=== PATIENT | female | born 1950 | race Native Hawaiian/Other Pacific Islander ===

== ENCOUNTER → 2017-01-08 | Outpatient (CLI) | payer MEDICARE, OTHER ==
--- NOTE | 2017-01-09 13:53 | MM ---
Reason for exam: screening (asymptomatic). Last mammogram was performed 1 year ago. History: Patient is postmenopausal. Family history of breast cancer in paternal aunt. Physical Findings: A clinical breast exam by your physician is recommended on an annual basis and results should be correlated with mammographic findings. MG Screening Mammo w CAD Bilateral CC and MLO view(s) were taken. Prior study comparison: January 05, 2016, bilateral MG screening mammo w CAD. January 02, 2015, bilateral MG screening mammo w CAD. The breast tissue is heterogeneously dense. This may lower the sensitivity of mammography. There is an increasing group of calcifications upper outer left breast at posterior depth. This finding is changed when compared with previous exams. ASSESSMENT: Incomplete: need additional imaging evaluation, BI-RAD 0 RECOMMENDATION: Special view mammogram of the left breast. [facility] will attempt to contact patient to return for supplemental views.
== END | disposition home or self-care (01) ==
LOC: RADMAMWWP 11:33
PROVIDERS: ATTEND Family Medicine
DX: Z12.31 Encounter for screening mammogram for malignant neoplasm of breast (principal); R92.2 Inconclusive mammogram

== ENCOUNTER → 2017-01-16 | Outpatient (CLI) | payer MEDICARE ==
--- NOTE | 2017-01-16 11:33 | MM ---
Reason for exam: additional evaluation requested from abnormal screening. Last mammogram was performed less than 1 month ago. History: Patient is postmenopausal. Family history of breast cancer in paternal aunt. Physical Findings: Nurse did not find any significant physical abnormalities on exam. MG 3D Work Up W/Cad LT CC, MLO, ML, XCCL, CC with magnification, and ML with magnification view(s) were taken of the left breast. Prior study comparison: January 08, 2017, bilateral MG screening mammo w CAD. January 05, 2016, bilateral MG screening mammo w CAD. There are scattered fibroglandular densities. Punctate calcifications in circular configuration with underlying lucency may reflect calcifications in the all of a small cyst. A 6 month follow up is recommended. These results were verbally communicated with the patient and result sheet given to the patient on 01/16/17. ASSESSMENT: Probably benign, BI-RAD 3 RECOMMENDATION: Follow-up diagnostic mammogram of the left breast in 6 months.
== END | disposition home or self-care (01) ==
LOC: RADMAMWWP 10:25
PROVIDERS: ATTEND Family Medicine
DX: R92.8 Other abnormal and inconclusive findings on diagnostic imaging of breast (principal)
CPT/HCPCS: G0206; G0279

== ENCOUNTER → 2017-07-21 | Outpatient (CLI) | payer MEDICARE ==
--- NOTE | 2017-07-21 14:01 | MM ---
Reason for exam: follow-up at short interval from prior study. Last mammogram was performed 6 months ago. History: Patient is postmenopausal. Family history of breast cancer in paternal aunt. Physical Findings: Nurse did not find any significant physical abnormalities on exam. MG 3D Diag Mammo W/Cad LT CC and MLO view(s) were taken of the left breast. Prior study comparison: January 16, 2017, left breast MG 3d work up w/cad LT. January 08, 2017, bilateral MG screening mammo w CAD. There are scattered fibroglandular densities. There are two groups of calcifications in the upper outer quadrant 1.0cm and 0.5mm at posterior and middle depth respectively. No suspicious abnormality. These results were verbally communicated with the patient and result sheet given to the patient on 07/21/17. ASSESSMENT: Probably benign, BI-RAD 3 RECOMMENDATION: Follow-up diagnostic mammogram of both breasts in 6 months. Back on schedule for December 2017.
== END | disposition home or self-care (01) ==
LOC: RADMAMWWP 13:08
PROVIDERS: ATTEND Family Medicine
DX: R92.8 Other abnormal and inconclusive findings on diagnostic imaging of breast (principal)
CPT/HCPCS: 77065; G0279

== ENCOUNTER → 2018-02-26 | Outpatient (CLI) | payer MEDICARE, OTHER ==
--- NOTE | 2018-02-26 14:41 | MM ---
Reason for exam: additional evaluation requested from prior study. Last mammogram was performed 7 months ago. History: Patient is postmenopausal. Family history of breast cancer in paternal aunt. Physical Findings: Nurse did not find any significant physical abnormalities on exam. MG 3D Diag Mammo W/Cad [facility] Bilateral CC and MLO view(s) were taken. Prior study comparison: July 21, 2017, left breast MG 3d diag mammo w/cad LT. January 16, 2017, left breast MG 3d work up w/cad LT. There are scattered fibroglandular densities. Finding: There are several stable, fine, coarse, grouped/clustered calcifications in both breasts. Left upper outer quadrant calcifications are stable. No significant changes in finding since July 21, 2017 and January 16, 2017. These results were verbally communicated with the patient and result sheet given to the patient on 02/26/18. ASSESSMENT: Benign, BI-RAD 2 RECOMMENDATION: Routine screening mammogram of both breasts in 1 year.
== END | disposition home or self-care (01) ==
LOC: RADMAMWWP 13:34
PROVIDERS: ATTEND Family Medicine
DX: R92.8 Other abnormal and inconclusive findings on diagnostic imaging of breast (principal)
CPT/HCPCS: 77066; G0279; 77062

== ENCOUNTER → 2019-05-11 | Outpatient (CLI) | payer MEDICARE, OTHER ==
--- NOTE | 2019-05-12 14:44 | MM ---
Reason for exam: screening (asymptomatic). Last mammogram was performed 1 year and 2 months ago. History: Patient is postmenopausal. Family history of breast cancer in paternal aunt. Took hormonal contraceptives for 2 months. Physical Findings: A clinical breast exam by your physician is recommended on an annual basis and results should be correlated with mammographic findings. MG 3D Screening Mammo W/Cad Bilateral CC and MLO view(s) were taken. Prior study comparison: February 26, 2018, bilateral MG 3d diag mammo w/cad [facility]. July 21, 2017, left breast MG 3d diag mammo w/cad LT. The breast tissue is heterogeneously dense. This may lower the sensitivity of mammography. There are benign appearing round vascular dystrophic calcifications bilaterally. There is chronic nodularity in the left upper outer quadrant. There is no discrete abnormality. ASSESSMENT: Benign, BI-RAD 2 RECOMMENDATION: Routine screening mammogram of both breasts in 1 year.
== END | disposition home or self-care (01) ==
LOC: RADMAMWWP 09:53
PROVIDERS: ATTEND Family Medicine
DX: Z12.31 Encounter for screening mammogram for malignant neoplasm of breast (principal)
CPT/HCPCS: 77063; 77067

== ENCOUNTER → 2019-11-24 | Outpatient (CLI) | payer MEDICARE, OTHER ==
--- NOTE | 2019-11-25 12:52 | ECHOF ---
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 MEASUREMENTS -------- HEIGHT: 152.4 cm WEIGHT: 82.6 kg BP: RVIDd: 3.6 cm (< 3.3) IVSd: 0.9 cm (0.6 - 1.1) LVIDd: 4.3 cm (3.9 - 5.3) LVPWd: 1.2 cm (0.6 - 1.1) IVSs: 1.5 cm LVIDs: 2.9 cm LVPWs: 1.7 cm LA Diam: 3.6 cm (2.7 - 3.8) LAESV Index (A-L): 24.37 ml/m Ao Diam: 3.0 cm (2.0 - 3.7) AV Cusp: 1.7 cm (1.5 - 2.6) LA Diam: 3.4 cm (2.7 - 3.8) MV EXCURSION: 13.883 mm (> 18.000) MV EF SLOPE: 58 mm/s (70 - 150) EPSS: 0.4 cm MV E Layo: 0.42 m/s MV DecT: 257 ms MV A Layo: 0.90 m/s MV E/A Ratio: 0.46 AV maxP.22 mmHg AV meanP.27 mmHg AR PHT: 294 ms RAP: 5.00 mmHg RVSP: 21.43 mmHg FINDINGS -------- Sinus rhythm. This was a technically adequate study. The left ventricular size is normal. There is mild concentric left ventricular hypertrophy. Overa ll left ventricular systolic function is normal with, an EF between 55 - 60 %. The right ventricle is normal in size. The left atrial size is normal. Normal LA size by volume 22+/-6 ml/m2. The right atrial size is normal. There is mild aortic regurgitation. There is mild aortic stenosis present. Peak/mean gradient acr oss the Aortic Valve is 18.22mmHg / 9.27mmHg. Mild mitral annular calcification present. Mild mitral regurgitation is present. Mild tricuspid regurgitation present. Right ventricular systolic pressure is normal at < 35 mmHg. Trace/mild (physiologic) pulmonic regurgitation. The aortic root size is normal. There is no pericardial effusion. CONCLUSIONS -------- 1. Sinus rhythm. 2. This was a technically adequate study. 3. The left ventricular size is normal. 4. There is mild concentric left ventricular hypertrophy. 5. Overall left ventricular systolic function is normal with, an EF between 55 - 60 %. 6. The right ventricle is normal in size. 7. The left atrial size is normal. 8. Normal LA size by volume 22+/-6 ml/m2. 9. The right atrial size is normal. 10. There is mild aortic regurgitation. 11. There is mild aortic stenosis present. 12. Peak/mean gradient across the Aortic Valve is 18.22mmHg / 9.27mmHg. 13. Mild mitral annular calcification present. 14. Mild mitral regurgitation is present. 15. Mild tricuspid regurgitation present. 16. Right ventricular systolic pressure is normal at < 35 mmHg. 17. Trace/mild (physiologic) pulmonic regurgitation. 18. The aortic root size is normal. 19. There is no pericardial effusion. PAROLE AGENT: Angela Chong RDCS
== END | disposition home or self-care (01) ==
LOC: RADECHMAIN 13:26
PROVIDERS: ATTEND Internal Medicine Gastroenterology
DX: I08.3 Combined rheumatic disorders of mitral, aortic and tricuspid valves (principal)
CPT/HCPCS: 93306

== ENCOUNTER 2019-12-22 07:10 | Day surgery (SDC) | payer MEDICARE, OTHER ==
[2019-12-20 11:42] VITALS: BMI 35.2
[~2019-12-22 07:10] MED LIST: LACTATED RINGERS 1,000 ML IV SCH
[2019-12-22 07:47] LABS: Glucose,Whole Blood 114 mg/dL (75-99)
[2019-12-22 07:52] VITALS: TEMP 98.2
[2019-12-22] MEDS ORDERED: PROPOFOL 10 MG/ML 20 ML VIAL IV ONE (07:55)
[2019-12-22] MEDS ORDERED: LIDOCAINE 1% INJ 10MG/ML (20 ML MDV) ONE (07:55)
--- NOTE | 2019-12-22 08:33 | P.PCN ---
Date of Procedure: 12/22/19 Procedure(s) Performed: Brief history: Patient is a pleasant 69-year-old white scheduled for an elective upper endoscopy as well as colonoscopy as a part of evaluation of GERD intermittent dysphagia to solids and anemia with black tarry stools. She was noted to have Hemoccult-positive stool. Procedure performed: Esophagogastroduodenoscopy with biopsy Colonoscopy with argon plasma coagulation, snare polypectomy Preoperative diagnosis: GERD/intermittent dysphagia to solids Hemoccult-positive stools/anemia Anesthesia: MAC Procedure: After informed consent was obtained from the patient was brought into the endoscopy unit and IV sedation was administered by anesthesia under continuous monitoring. Initially upper endoscopy was done. The Olympus GF 160 video endoscope was inserted inserted into the mouth and esophagus intubated without any difficulty and was gradually advanced into the stomach and duodenum and carefully examined. The bulb and second part of the duodenum appeared normal. Biopsies were done from the The scope was then withdrawn into the stomach adequately insufflated with air and upon careful examination the antrum had mild gastritis and biopsies were done from this area. The body, cardia and fundus appeared normal. The scope was then withdrawn into the esophagus. The GE junction was located at 37 cm to the incisors. It appeared regular with no erosions or ulcerations. There was mild circumferential erythema consistent with LA grade a reflux esophagitis There was evidence of scarring noted at the GE junction from previous esophagitis. No obvious esophagueal stricture are identified. Rest of the esophagus appeared normal. Patient tolerated the procedure well. At this time the patient continued to remain sedation. Initial digital rectal examination was normal. Olympus CF 160 video colonoscope was then inserted into the rectum and gradually advanced to the sigmoid:.colon: Further advancement was not possible. Scope removed and a pediatric colonoscope was then inserted into the rectum and gradually advanced into the cecum with mild to moderate difficulty. Careful examination was performed as the scope was gradually being withdrawn. The prep was excellent. On the ileocecal valve there was a 1 cm nonbleeding arterial venous malformation that was cauterized using argon plasma coagulation. The cecum, ascending colon, transverse colon appeared normal. In the descending colon at 50 cm from the anal was there was a 1 cm sessile polyp removed by snare polypectomy. Scattered left sided diverticulosis seen. Rest of the, descending colon, sigmoid colon and rectum appeared normal. Retroflexion was performed in the rectum and no lesions were noted. Patient tolerated the procedure well. Impression: 1. Upper endoscopy revealed mild antral gastritis and LA grade a reflux esophagitis 2. 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 She was advised to follow with the biopsy results. If the biopsy shows an adenoma she can have a repeat colonoscopy in 3-5 years.
[2019-12-22 08:39] VITALS: BP 126/55; PULSE 76; RESP 18
== END 2019-12-22 09:29 | disposition home or self-care (01) ==
LOC: ORWHC2ENDO 07:10
PROVIDERS: ATTEND Internal Medicine Gastroenterology
DX: K29.50 Unspecified chronic gastritis without bleeding (principal); D12.4 Benign neoplasm of descending colon; K21.0 Gastro-esophageal reflux disease with esophagitis; K22.8 Other specified diseases of esophagus; Q27.33 Arteriovenous malformation of digestive system vessel; K57.30 Diverticulosis of large intestine without perforation or abscess without bleeding; D64.9 Anemia, unspecified; I10 Essential (primary) hypertension; E11.9 Type 2 diabetes mellitus without complications; E78.5 Hyperlipidemia, unspecified; E66.9 Obesity, unspecified; Z68.34 Body mass index [BMI] 34.0-34.9, adult; Z79.899 Other long term (current) drug therapy; Z79.84 Long term (current) use of oral hypoglycemic drugs; Z88.6 Allergy status to analgesic agent; Z87.891 Personal history of nicotine dependence; Z98.890 Other specified postprocedural states
CPT/HCPCS: 45385; 45382; 43239; 88305; 88342; J2001; J2704

== ENCOUNTER → 2020-07-27 | Outpatient (CLI) | payer MEDICARE, OTHER ==
--- NOTE | 2020-07-28 10:27 | MM ---
Reason for exam: screening (asymptomatic). Last mammogram was performed 1 year and 3 months ago. History: Patient is postmenopausal. Family history of breast cancer in paternal aunt. Took hormonal contraceptives for 2 months. Physical Findings: A clinical breast exam by your physician is recommended on an annual basis and results should be correlated with mammographic findings. MG 3D Screening Mammo W/Cad Bilateral CC and MLO view(s) were taken. Prior study comparison: May 11, 2019, bilateral MG 3d screening mammo w/cad. February 26, 2018, bilateral MG 3d diag mammo w/cad [facility]. There are scattered fibroglandular densities. Finding: There are coarse heterogeneous, grouped/clustered calcifications in the upper outer quadrant, posterior position of the left breast 13cm from the nipple, similar to 06/2017, recheck for increased number. New finding since May 11, 2019 and February 26, 2018. ASSESSMENT: Incomplete: need additional imaging evaluation, BI-RAD 0 RECOMMENDATION: Special view mammogram of the left breast. [facility] will attempt to contact patient to return for supplemental views.
== END ==
LOC: RADMAMWWP 14:04
PROVIDERS: ATTEND Family Medicine
DX: Z12.31 Encounter for screening mammogram for malignant neoplasm of breast (principal); Z78.0 Asymptomatic menopausal state; Z80.3 Family history of malignant neoplasm of breast
CPT/HCPCS: 77063; 77067

== ENCOUNTER → 2020-08-02 | Outpatient (CLI) | payer MEDICARE, OTHER ==
--- NOTE | 2020-08-02 13:13 | MM ---
Reason for exam: additional evaluation requested from abnormal screening. Last mammogram was performed less than 1 month ago. History: Patient is postmenopausal. Family history of breast cancer in paternal aunt. Took hormonal contraceptives for 2 months. Physical Findings: Nurse did not find any significant physical abnormalities on exam. MG 3D Work Up W/Cad LT CC with magnification, LM with magnification, and LM view(s) were taken of the left breast. Prior study comparison: July 27, 2020, bilateral MG 3d screening mammo w/cad. May 11, 2019, bilateral MG 3d screening mammo w/cad. There are scattered fibroglandular densities. New from 2016 far posterior 2 o'clock loosely grouped calcifications stable from 2019. 1 year follow up recommended. We note far posterior position, they may not be amenable to stereotactic biopsy. These results were verbally communicated with the patient and result sheet given to the patient on 08/02/20. ASSESSMENT: Probably benign, BI-RAD 3 RECOMMENDATION: Follow-up diagnostic mammogram of both breasts in 1 year.
== END | disposition home or self-care (01) ==
LOC: RADMAMWWP 09:31
PROVIDERS: ATTEND Family Medicine
DX: R92.8 Other abnormal and inconclusive findings on diagnostic imaging of breast (principal); Z78.0 Asymptomatic menopausal state
CPT/HCPCS: 77065; G0279; 77061

== ENCOUNTER → 2021-08-27 | Outpatient (CLI) | payer MEDICARE, OTHER ==
--- NOTE | 2021-08-28 10:56 | MM ---
Reason for exam: screening (asymptomatic). Last mammogram was performed 1 year and 1 month ago. History: Patient is postmenopausal. Family history of breast cancer in paternal aunt. Took hormonal contraceptives for 2 months. Physical Findings: A clinical breast exam by your physician is recommended on an annual basis and results should be correlated with mammographic findings. MG 3D Screening Mammo W/Cad Bilateral CC and MLO view(s) were taken. Prior study comparison: August 02, 2020, left breast MG 3d work up w/cad LT. July 27, 2020, bilateral MG 3d screening mammo w/cad. There are scattered fibroglandular densities. No significant changes when compared with prior studies. ASSESSMENT: Benign, BI-RAD 2 RECOMMENDATION: Routine screening mammogram of both breasts in 1 year.
== END | disposition home or self-care (01) ==
LOC: RADMAMWWP 10:49
PROVIDERS: ATTEND Family Medicine
DX: Z12.31 Encounter for screening mammogram for malignant neoplasm of breast (principal); Z78.0 Asymptomatic menopausal state; Z80.3 Family history of malignant neoplasm of breast
CPT/HCPCS: 77063; 77067

== ENCOUNTER → 2022-08-28 | Outpatient (CLI) | payer OTHER ==
--- NOTE | 2022-08-28 13:20 | BD ---
EXAMINATION TYPE: Axial Bone Density DATE OF EXAM: 08/28/2022 CLINICAL HISTORY: 72 years old Female. ICD-10 CODE: Z78.0 ASYMPTOMATIC MENOPAUSAL STA Height: 58.7 in Weight: 183 lbs FRAX RISK QUESTIONS: Secondary Osteoporosis: 3. Menopause before 45: partial hysterectomy age 41 RISK FACTORS HISTORY OF: Family History of Osteoporosis: yes mother Active: yes Diet low in dairy products/other sources of calcium: yes Postmenopausal woman: partial hyst age 41 MEDICATIONS: Additional Medications: vit d, iron zinc, gout meds, metformin, blood pressure meds, diabetes meds, s clederma meds EXAM MEASUREMENTS: Bone mineral densitometry was performed using the [employer] System. Bone mineral density as measured about the Lumbar spine is: ----- L1-L4(G/cm2): 1.399 T Score Values are as follows: ----- L1: 0.9 ----- L2: 1.3 ----- L3: 1.9 ----- L4: 2.8 ----- L1-L4: 1.8 Z Score Values are as follows: ----- L1: 2.0 ----- L2: 2.4 ----- L3: 3.0 ----- L4: 3.9 ----- L1-L4: 2.9 Bone mineral density has: Decreased -1.8% since study of: 01/02/2015 Bone mineral density about the R hip (g/cm2): 1.094 Bone mineral density about the L hip (g/cm2): 1.057 T Score values are as follows: -----R Neck: -0.1 -----L Neck: -0.9 -----R Total: 0.7 -----L Total: 0.4 Z Score values are as follows: -----R Neck: 1.2 -----L Neck: 0.4 -----R Total: 1.8 -----L Total: 1.5 Bone mineral density has: Decreased -2.1% since study of: 01/02/2015 FRAX%s: The graph provided illustrates a 4.6% chance for a major osteoporotic fx and a 0.5% chance fo r the hips probability for fx in 10 years time. IMPRESSION: Normal (Values between +1 and -1 indicate normal bone mass). Consider repeating this study in 5 year s or sooner if there is some new clinical indication. NOTE: T-SCORE=SD OF THE YOUNG ADULT MEAN.
--- NOTE | 2022-08-29 18:29 | MM ---
Reason for Exam: Screening (asymptomatic). Last screening mammogram was performed 12 month(s) ago. Patient History: Menarche at age 12. First Full-Term at age 22. Right ovary removed at age 41. Hysterectomy at age 41. Postmenopausal. Hormonal Contraceptives for 2 months. Paternal aunt had breast cancer, age 68. Risk Values: Winsome 5 year model risk: 1.7%. NCI Lifetime model risk: 4.7%. Prior Study Comparison: 07/27/2020 Bilateral Screening Mammogram, [facility]. 08/02/2020 Left Diagnostic Mammogram, [facility]. 08/27/2021 Bilateral Screening Mammogram, [facility]. Tissue Density: There are scattered fibroglandular densities. Findings: Analyzed By CAD. Chronic nodularity lateral left breast. A few scattered benign oil cyst, course, and vascular calcifications are redemonstrated on both sides. There is no suspicious group of microcalcifications or new suspicious mass in either breast. Overall Assessment: Benign, BI-RAD 2 Management: Screening Mammogram of both breasts in 1 year. 1. Patient should continue monthly self breast exams. 2. A clinical breast exam by your physician is recommended on an annual basis. 3. This exam should not preclude additional follow-up of suspicious palpable abnormalities. Electronically signed and approved by: Cuate Montague M.D. Radiologist
== END | disposition home or self-care (01) ==
LOC: RADMAMWWP 09:57
PROVIDERS: ATTEND Family Medicine
DX: Z12.31 Encounter for screening mammogram for malignant neoplasm of breast (principal); Z78.0 Asymptomatic menopausal state; Z80.3 Family history of malignant neoplasm of breast
CPT/HCPCS: 77063; 77067; 77080

== ENCOUNTER → 2022-10-29 | Outpatient (CLI) | payer MEDICARE ==
--- NOTE | 2022-10-30 09:02 | CA ---
Transthoracic Echo Report Name: Zane Hayes Age: 72 Gender: F : 1950 Exam Date: 10/29/2022 11:07 Exam Location: [facility] Ht (in): 60 Wt (lb): 180 Ordering Physician: Anita Hemphill MD Attending/Referring Phys: Stop Attacher Cookie Love RDCS Procedure CPT: Indications: M34.9 Systemic Sclerosis Cardiac Hx: Technical Quality: Fair Contrast 1: Total Dose (mL): Contrast 2: Total Dose (mL): MEASUREMENTS (Male / Female) Normal Values 2D ECHO LV Diastolic Diameter PLAX 2.9 cm 4.2 - 5.9 / 3.9 - 5.3 cm LV Systolic Diameter PLAX 1.6 cm IVS Diastolic Thickness 1.7 cm 0.6 - 1.0 / 0.6 - 0.9 cm LVPW Diastolic Thickness 1.7 cm 0.6 - 1.0 / 0.6 - 0.9 cm LV Relative Wall Thickness 1.2 RV Internal Dim ED PLAX 3.6 cm LVOT Diameter 1.9 cm LA Volume 53.7 cm??? 18 - 58 / 22 - 52 cm??? M-MODE Aortic Root Diameter MM 2.8 cm LA Systolic Diameter MM 3.4 cm LA Ao Ratio MM 1.2 AV Cusp Separation MM 1.6 cm DOPPLER AV Peak Velocity 233.0 cm/s AV Peak Gradient 21.7 mmHg AV Mean Velocity 166.4 cm/s AV Mean Gradient 12.3 mmHg AV Velocity Time Integral 45.6 cm AI Peak Velocity 501.8 cm/s AI Peak Gradient 100.7 mmHg AI Pressure Half Time 512.4 ms LVOT Peak Velocity 106.5 cm/s LVOT Peak Gradient 4.5 mmHg LVOT Velocity Time Integral 23.2 cm LVOT Stroke Volume 62.7 cm??? LVOT Stroke Volume Index 35.1 ml/m??? LVOT Cardiac Index 2873.2 cm???/min???m??? AV Area Cont Eq vti 1.4 cm??? AV Area Cont Eq pk 1.2 cm??? MV Area PHT 2.6 cm??? Mitral E Point Velocity 90.1 cm/s Mitral A Point Velocity 144.1 cm/s Mitral E to A Ratio 0.6 MV Deceleration Time 290.5 ms MV E' Velocity 3.5 cm/s Mitral E to MV E' Ratio 25.7 TR Peak Velocity 172.8 cm/s TR Peak Gradient 11.9 mmHg Right Ventricular Systolic Press 16.9 mmHg FINDINGS Left Ventricle Severely increased left ventricular wall thickness. Left ventricular cavity size normal. Normal left ventricular systolic function with no obvious regional wall motion abnormalities. Left ventricular ejection fraction is estimated at 55-60 %. Right Ventricle Mild right ventricular dilatation. Right ventricular systolic pressure within normal limits. Right Atrium Normal right atrial size. Left Atrium Mildly increased left atrial volume. Mitral Valve Structurally normal mitral valve. Mitral valve thickened. Mild mitral annular calcification. Mild mitral regurgitation. Aortic Valve Mild aortic stenosis with a peak gradient of 22 mmHg and a mean gradient of 12 mmHg. [id number] aortic regurgitation. Tricuspid Valve Structurally normal tricuspid valve. Mild tricuspid regurgitation. Pulmonic Valve Trace pulmonic regurgitation. Pericardium No pericardial effusion. Aorta Normal size aortic root and proximal ascending aorta CONCLUSIONS Technically difficult study Normal LV systolic function Mitral annular calcification Aortic sclerosis with mild aortic stenosis Previewed by: Dr. Akbar Sinclair MD (Electronically Signed) Final Date: 30 October 2022 09:01
== END ==
LOC: CPPFTMAIN 10:27
PROVIDERS: ATTEND Internal Medicine Rheumatology
DX: M34.9 Systemic sclerosis, unspecified (principal); Z88.8 Allergy status to other drugs, medicaments and biological substances; Z87.891 Personal history of nicotine dependence
CPT/HCPCS: 93306; 94060; 94726; 94729

== ENCOUNTER → 2023-07-01 | Outpatient (CLI) | payer MEDICARE ==
--- NOTE | 2023-07-01 12:57 | US ---
EXAMINATION TYPE: US venous doppler duplex LE BI DATE OF EXAM: 07/01/2023 12:07 PM COMPARISON: NONE CLINICAL INDICATION: Female, 72 years old with history of R60.0 EDEMA; Pain and edema bilateral legs. Discoloration/sores bilateral lower legs for 6 years, getting worse within the last year SIDE PERFORMED: bilateral TECHNIQUE: The lower extremity deep venous system is examined utilizing real time linear array sonog murtaza with graded compression, doppler sonography and color-flow sonography. VESSELS IMAGED: Common Femoral Vein Deep Femoral Vein Greater Saphenous Vein * Femoral Vein Popliteal Vein Small Saphenous Vein * Proximal Calf Veins (* superficial vessels) Right Leg: No evidence of DVT Left Leg: No evidence of DVT IMPRESSION: Grayscale, color doppler, spectral doppler imaging performed of the deep veins of the lo wer extremities. There is normal flow, compressibility, vascular waveforms.
== END | disposition home or self-care (01) ==
LOC: RADUSWWP 12:04
PROVIDERS: ATTEND Family Medicine
DX: R60.0 Localized edema (principal)
CPT/HCPCS: 93970

== ENCOUNTER → 2023-09-01 | Outpatient (CLI) | payer MEDICARE ==
--- NOTE | 2023-09-02 12:46 | MM ---
Reason for Exam: Screening (asymptomatic). Last screening mammogram was performed 12 month(s) ago. Patient History: Menarche at age 12. First Full-Term at age 22. Right ovary removed at age 41. Hysterectomy at age 41. Postmenopausal. Hormonal Contraceptives for 2 months. Paternal aunt had breast cancer, age 68. Risk Values: Winsome 5 year model risk: 1.7%. NCI Lifetime model risk: 4.5%. Prior Study Comparison: 08/02/2020 Left Diagnostic Mammogram, [facility]. 08/27/2021 Bilateral Screening Mammogram, [facility]. 08/28/2022 Bilateral MG 3D screening mammo w/cad, [facility]. Tissue Density: The breasts are heterogeneously dense, which may obscure small masses. Findings: Analyzed By CAD. There is no suspicious group of microcalcifications or new suspicious mass in either breast. Overall Assessment: Benign, BI-RAD 2 Management: Screening Mammogram of both breasts in 1 year. . Patient should continue monthly self-breast exams. A clinical breast exam by your physician is recommended on an annual basis. This exam should not preclude additional follow-up of suspicious palpable abnormalities. Note on Winsome scores and lifetime risk: 1. A Winsome score greater than 3% is considered moderate risk. If this is the case, consider specialist referral to assess eligibility for a risk reducing agent. 2. If overall lifetime risk for the development of breast cancer is 20% or higher, the patient may qualify for future screening with alternating mammogram and breast MRI. Electronically signed and approved by: Alex Adamson M.D. Radiologis
== END | disposition home or self-care (01) ==
LOC: RADMAMWWP 09:36
PROVIDERS: ATTEND Family Medicine
DX: Z12.31 Encounter for screening mammogram for malignant neoplasm of breast (principal); Z80.3 Family history of malignant neoplasm of breast; Z78.0 Asymptomatic menopausal state
CPT/HCPCS: 77063; 77067

== ENCOUNTER 2024-03-10 10:01 | Day surgery (SDC) | payer MEDICARE ==
[~2024-03-10 10:01] MED LIST changes: -LACTATED RINGERS 1,000 ML IV SCH; +LIDOCAINE 1% (10MG/ML) FOR IV START INTRADERMA PRN
[2024-03-10] MEDS: IV FLUID CONTINUATION 1,000 ML IV ONE (10:18)
[2024-03-10 10:29] VITALS: RESP 16; TEMP 97.2
[2024-03-10] MEDS: LACTATED RINGERS 1,000 ML IV SCH (10:32)
[2024-03-10] MEDS ORDERED: PROPOFOL 10 MG/ML 20 ML VIAL IV ONE (10:33)
[2024-03-10 10:35] LABS: Glucose,Whole Blood 122 mg/dL (70-110)
--- NOTE | 2024-03-10 11:07 | P.PCN ---
Date of Procedure: 03/10/24 Procedure(s) Performed: BRIEF HISTORY: Patient is a 73-year-old pleasant white female scheduled for an elective colonoscopy as a part of evaluation for history of colon polyps. Last colonoscopy was 4 years ago and was noted to have a tubular adenoma. PROCEDURE PERFORMED: Colonoscopy with biopsy. PREOPERATIVE DIAGNOSIS: History of colon polyps. IV sedation per Anesthesia. PROCEDURE: After informed consent was obtained, the patient, was brought into the endoscopy unit. IV sedation was administered by Anesthesia under continuous monitoring. Digital rectal examination was normal. Initially the Olympus CF-160 flexible video colonoscope was then inserted in the rectum, gradually advanced into the sigmoid colon the scope could not be go any further.. Colonoscopy is then inserted to the rectum and despite multiple attempts I was not able to advance the scope beyond the sigmoid colon because of acute angulation in this area. At this time an upper endoscopy was used and with gentle manipulation abdominal pressure the scope was gradually advanced into the cecum with heart rate difficulty. Careful examination was performed as the scope was gradually being withdrawn. Ileocecal valve and the appendiceal orifice were visualized and appeared normal. Prep was excellent. Mucosa of the cecum, ascending colon, transverse colon, descending colon, normal. The sigmoid colon was a 3 mm polyp that was removed by cold biopsy. Moderate sigmoid diverticulosis seen. Rest of the sigmoid colon, and rectum appeared normal. Retroflexion was performed in the rectum and no lesions were seen. The patient tolerated the procedure well. IMPRESSION: 3 millimeter sigmoid colon polyp status post cold biopsy Moderate sigmoid diverticulosis RECOMMENDATIONS: Findings of this examination were discussed with the patient as well as her family. She was advised to with the biopsy results and have repeat colonoscopy in 5 years..
[2024-03-10 11:29] VITALS: BP 131/54; PULSE 70
== END 2024-03-10 11:38 | disposition home or self-care (01) ==
LOC: ORWHC2ENDO 10:01
PROVIDERS: ATTEND Internal Medicine Gastroenterology
CPT/HCPCS: 45380; 88305

== ENCOUNTER → 2024-09-01 | Outpatient (CLI) | payer MEDICARE ==
--- NOTE | 2024-09-01 15:47 | MM ---
Reason for Exam: Screening (asymptomatic). Last screening mammogram was performed 12 month(s) ago. Patient History: Menarche at age 12. First Full-Term at age 22. Right ovary removed at age 41. Hysterectomy at age 41. Postmenopausal. Hormonal Contraceptives for 2 months. Paternal aunt had breast cancer, age 68. Risk Values: Winsome 5 year model risk: 1.7%. NCI Lifetime model risk: 4.3%. Prior Study Comparison: 08/27/2021 Bilateral Screening Mammogram, [facility]. 08/28/2022 Bilateral MG 3D screening mammo w/cad, [facility]. 09/01/2023 Bilateral MG 3D screening mammo w/cad, [facility]. Tissue Density: There are scattered areas of fibroglandular density. Findings: Analyzed By CAD. Chronic nodularity left breast. Benign bilateral vascular calcifications. Some scattered grouped round and dystrophic calcifications on the left. There is no suspicious group of microcalcifications or new suspicious mass in either breast. Overall Assessment: Benign, BI-RAD 2 Management: Screening Mammogram of both breasts in 1 year. Patient should continue monthly self-breast exams. A clinical breast exam by your physician is recommended on an annual basis. This exam should not preclude additional follow-up of suspicious palpable abnormalities. Note on Winsome scores and lifetime risk: 1. A Winsome score greater than 3% is considered moderate risk. If this is the case, consider specialist referral to assess eligibility for a risk reducing agent. 2. If overall lifetime risk for the development of breast cancer is 20% or higher, the patient may qualify for future screening with alternating mammogram and breast MRI. [facility], , 09/01/2024 3:44 PM. Electronically signed and approved by: Cuate Montague M.D. Radiologist
== END | disposition home or self-care (01) ==
LOC: RADMAMWWP 11:11
PROVIDERS: ATTEND Family Medicine
DX: Z12.31 Encounter for screening mammogram for malignant neoplasm of breast (principal); R92.323 Mammographic fibroglandular density, bilateral breasts; R92.1 Mammographic calcification found on diagnostic imaging of breast; Z78.0 Asymptomatic menopausal state; Z80.3 Family history of malignant neoplasm of breast; Z92.0 Personal history of contraception
CPT/HCPCS: 77063; 77067